=== PATIENT | female | born 1990 | race Caucasian/White ===

== ENCOUNTER → 2018-10-03 16:53 | Outpatient (CLI) | payer OTHER, SELFPAY | PROVIDERS: Visit Provider Obstetrics & Gynecology | DX: R31.9 Hematuria, unspecified (principal) | CPT/HCPCS: 87086 ==

== ENCOUNTER → 2018-10-28 11:41 | Outpatient (CLI) | payer OTHER, SELFPAY ==
[2018-10-29 13:59] LABS: HSV 2 IGG AB 7.73 index (< 0.90); HSV1IGG < 0.90 index (< 0.90)
== END ==
PROVIDERS: Visit Provider Obstetrics & Gynecology
DX: Z34.03 Encounter for supervision of normal first pregnancy, third trimester (principal)
CPT/HCPCS: 36415; 86695; 86696

== ENCOUNTER → 2018-11-09 10:04 | Outpatient (CLI) | payer OTHER, SELFPAY ==
[2018-11-10 13:06] LABS: Strep Grp B PCR NEG for Grp B Strep
== END ==
PROVIDERS: Visit Provider Obstetrics & Gynecology
DX: Z34.03 Encounter for supervision of normal first pregnancy, third trimester (principal)
CPT/HCPCS: 87653

== ENCOUNTER 2018-11-16 09:10 | Outpatient (CLI) | payer OTHER, SELFPAY | END 2018-11-16 10:15 | disposition home or self-care (01) | LOC: LABOR 09:37 → OB 11-17 11:06 | PROVIDERS: Visit Provider Obstetrics & Gynecology | DX: Z34.83 Encounter for supervision of other normal pregnancy, third trimester (principal); Z3A.36 36 weeks gestation of pregnancy | CPT/HCPCS: 59025; G0378; G0379 ==

== ENCOUNTER 2018-11-23 16:10 | Outpatient (CLI) | payer OTHER, SELFPAY | END 2018-11-23 16:45 | disposition home or self-care (01) | LOC: OB 11-30 08:37 | PROVIDERS: Visit Provider Obstetrics & Gynecology | DX: Z34.03 Encounter for supervision of normal first pregnancy, third trimester (principal); Z3A.37 37 weeks gestation of pregnancy | CPT/HCPCS: 59025; G0378; G0379 ==

== ENCOUNTER 2018-11-26 00:16 | Outpatient (CLI) | payer OTHER, SELFPAY | END 2018-11-26 01:30 | disposition home or self-care (01) | LOC: OB 11-30 08:40 | DX: Z34.03 Encounter for supervision of normal first pregnancy, third trimester (principal); Z3A.38 38 weeks gestation of pregnancy | CPT/HCPCS: 59025; 59050; G0378; G0379 ==

== ENCOUNTER 2018-11-29 12:23 | Outpatient (CLI) | payer OTHER, SELFPAY | END 2018-11-29 13:30 | disposition home or self-care (01) | LOC: OB 11-30 14:46 | PROVIDERS: Visit Provider Family Medicine | DX: Z34.03 Encounter for supervision of normal first pregnancy, third trimester (principal); Z3A.38 38 weeks gestation of pregnancy | CPT/HCPCS: 59025; G0378; G0379 ==

== ENCOUNTER 2018-11-30 00:05 | Inpatient (IN) | payer OTHER, SELFPAY ==
[2018-11-30 01:33] LABS: Add Manual Diff / Slide Review NO; Basophils Percent Auto 0.6 % (0-2); Eosinophils Percent Auto 1.3 % (2-4); Hematocrit 33.5 % (36-46); Hemoglobin 11.2 g/dL (12.0-16.0); Lymphocytes Percent Auto 15.6 % (25-40); Mean Corpuscular HGB Conc 33.5 % (30-36); Mean Corpuscular Hemoglobin 29.9 PG (26-34); Mean Corpuscular Volume 89.2 fL (80-100); Monocytes Percent Auto 7.8 % (3-14); Neutrophils Absolute Auto 9600 /uL (1500-7000); Neutrophils Percent Auto 74.7 % (50-75); Platelet Count 204 X10^3/uL (150-400); Red Blood Cell Count 3.75 X10^6/uL (4.0-5.2); Red Cell Distribution Width 14.2 % (11.6-14.8); White Blood Cell Count 12.9 X10^3/uL (4.5-11.0)
[2018-11-30] MEDS: LACTATED RINGERS 1,000 ML 100 ML IV ×3 (03:10→13:13)
[2018-11-30 06:04] VITALS: BP 141/81
[2018-11-30] MEDS: OXYTOCIN PREMIX 30 UNIT/500 ML PLAST..BAG IV (07:45)
--- NOTE | 2018-11-30 17:43 | PM.OBHP.1 ---
OB HPI Date/Time Date of admission: 11/30/18 Date Patient Seen: 11/30/18 Time Patient Seen: 07:45 History of Present Condition Chief complaint: evaluation of labor : 1 Para: 0 Estimated Date of Delivery: 12/08/18 Estimated Gestational Age (weeks): 38+6 Narrative: Marilyn Stone is a 28 year old female 1 para 0 who presented with spontaneous rupture of membranes last evening complicated only by aged placenta History of Present care: good care, initiated at week # (9) and number of visits (12) Dating criteria: LMP confirmed by 1st trimester US Ultrasounds: normal 1st trimester US and normal mid trimester US Obstetrical complications: other (Aged placenta) Medical complications: none Preadmission Labs Blood type: A (+) positive -: Antibody screen: negative, GBS status: negative, HBsAG: negative, HIV: negative, HSV 1: negative, HSV 2: positive and RPR/VDLR: negative -: Chlamydia screen: not detected and Gonorrhea screen: not detected -: Rubella: immune and Varicella: not immune HCT: 33.7 HCAB: negative Urine: Negative 1 hr GTT: 134 Evaluation Evaluation Baseline heart rate: 140 Variability: Moderate (11-25) monitor accelerations: Present monitor decelerations: Absent Contraction Frequency (minutes): 3 Uterine Contraction Intensity: Strong/Firm Category of Tracing: I Cervical dilation (cm): 4 Cervical effacement (%): 10 station: 0 Laboratory results: Laboratory Tests 11/30/18 11/30/18 01:00 01:00 WBC 12.9 H RBC 3.75 L Hgb 11.2 L Hct 33.5 L MCV 89.2 MCH 29.9 MCHC 33.5 RDW 14.2 Plt Count 204 Neut % (Auto) 74.7 Lymph % (Auto) 15.6 L [place] % (Auto) 7.8 Eos % (Auto) 1.3 L Baso % (Auto) 0.6 Neut # (Auto) 9600 H Blood Type A Positive Antibody Screen Negative PFSH Social History Smoking Status: Never smoker Meds Home Medications Medication Instructions Recorded Confirmed Type valacyclovir 500 mg tablet 500 mg PO DAILY #30 tab 11/09/18 11/30/18 Rx breast pump #1 each 11/16/18 11/30/18 Rx Allergies Allergy/AdvReac Type Severity Reaction Status Date / Time No Known Drug Allergies Allergy Verified 11/30/18 06:03 Exam Vital Signs (past 8 hours): Generally: A well-developed, well-nourished white female, no acute distress Lungs: Clear to auscultation bilaterally Cardiovascular: Regular rate and rhythm Fundal height: 38 cm Estimated weight 7 lb Extremities: Negative Homans, no edema Objective Labs Result Diagrams: 11/30/18 01:00 Labs: Laboratory Results - last 24 hr 11/30/18 11/30/18 01:00 01:00 WBC 12.9 H RBC 3.75 L Hgb 11.2 L Hct 33.5 L MCV 89.2 MCH 29.9 MCHC 33.5 RDW 14.2 Plt Count 204 Neut % (Auto) 74.7 Lymph % (Auto) 15.6 L [place] % (Auto) 7.8 Eos % (Auto) 1.3 L Baso % (Auto) 0.6 Neut # (Auto) 9600 H Blood Type A Positive Antibody Screen Negative Assessment and Plan (1) 38 weeks gestation of : Current visit: Yes Status: Acute (2) Spontaneous rupture of membranes: Current visit: Yes Status: Acute (3) Active labor: Current visit: Yes Status: Acute Plan: Plan: Assessment: 28-year-old 1 para 0 status post spontaneous rupture of membranes at 11:30 p.m. last evening. No signs and symptoms of chorioamnionitis Aged placenta Status post epidural placement Plan: Pitocin augmentation Expected management to spontaneous vaginal delivery
--- NOTE | 2018-11-30 17:51 | PM.OBPRVD ---
Events: Labor Augmentation and Placental Insufficiency (aged placenta) Delivery date: 11/30/18 Intrapartal events: None Induction method: none Delivery augmentation: pitocin Delivery monitor: external FHT and external uterine Route of delivery: Episiotomy description: None Laceration description: Superficial (bilateral labia minora) Delivery repair: vicryl and chromic Estimated blood loss (mL): 150 Anesthesia type: Epidural Complications: None Narrative: Patient presented last evening with spontaneous rupture of membranes at 11:30 p.m.. She received an epidural for pain management. Contractions spaced out. She received Pitocin augmentation this morning at 2 elsy international units per minute. She progressed to complete dilation at 2:10 p.m.. She began pushing at 2:42 p.m.. Delivery of a live male infant at 4:19 p.m. over an intact perineum. The cord was double clamped and cut. Cord bloods were obtained. The placenta delivered intact with a 3 vessel cord at 4:23 p.m.. Bilateral labia minora lacerations were repaired with 2 0 chromic. Apgars 8 at 1 min and 9 at 5 min. Estimated blood loss 150 cc. Weight 7 lb 2 oz. Epidural analgesia. . Mom and infant stable to recovery. Plan for aftercare: To routine care
--- NOTE | 2018-11-30 17:54 | P.PCNOB_ITS ---
Events: Labor Augmentation and Placental Insufficiency (aged placenta) Delivery date: 11/30/18 Intrapartal events: None Induction method: none Delivery augmentation: pitocin Delivery monitor: external FHT and external uterine Route of delivery: Episiotomy description: None Laceration description: Superficial (bilateral labia minora) Delivery repair: vicryl and chromic Estimated blood loss (mL): 150 Anesthesia type: Epidural Complications: None Narrative: Patient presented last evening with spontaneous rupture of membranes at 11:30 p.m.. She received an epidural for pain management. Contractions spaced out. She received Pitocin augmentation this morning at 2 elsy international units per minute. She progressed to complete dilation at 2:10 p.m.. She began pushing at 2:42 p.m.. Delivery of a live male infant at 4:19 p.m. over an intact perineum. The cord was double clamped and cut. Cord bloods were obtained. The placenta delivered intact with a 3 vessel cord at 4: 23 p.m.. Bilateral labia minora lacerations were repaired with 2 0 chromic. Apgars 8 at 1 min and 9 at 5 min. Estimated blood loss 150 cc. Weight 7 lb 2 oz. Epidural analgesia. . Mom and stable to recovery. Plan for aftercare: To routine care
[2018-11-30] MEDS: IBUPROFEN 600 MG TABLET PO (18:34)
[2018-11-30] MEDS: DERMOPLAST SPRAY 20% 60 ML 1 SPRAY TOP (18:35)
[2018-11-30] MEDS: METHYLERGONOVINE 0.2 MG/ML VIAL IM (20:10)
[2018-11-30] MEDS: OXYTOCIN 10 UNIT/ML VIAL IM (21:30)
[2018-11-30] MEDS: CARBOPROST 250 MCG/ML AMPUL IM (21:30)
[2018-11-30] MEDS: OXYCODONE/ACETAMINOPHEN 5/325 TABLET 1 TAB PO (22:17)
[2018-12-01] MEDS: IBUPROFEN 600 MG TABLET PO ×3 (00:48→09:42)
[2018-12-01] MEDS: LANOLIN OINT 7 GM 1 APPLIC TOP (03:15)
[2018-12-01] MEDS: METHYLERGONOVINE 0.2 MG TABLET PO ×3 (03:15→13:45)
[2018-12-01] MEDS: OXYCODONE/ACETAMINOPHEN 5/325 TABLET 1 TAB PO (03:59)
[2018-12-01 07:03] LABS: Hematocrit 32.9 % (36-46); Hemoglobin 11.1 g/dL (12.0-16.0)
[2018-12-01] MEDS: DOCUSATE 250 MG CAPSULE PO (09:42)
[2018-12-01] MEDS: PRENATAL VIT,CALC/IRON/FOLIC 1 TABLET 1 TAB PO (09:43)
[2018-12-01 14:44] VITALS: BP 114/68; PULSE 81; RESP 16; TEMP 36.7
== END 2018-12-01 18:10 | disposition home or self-care (01) | DRG 807 ==
PROVIDERS: Admitting Provider Obstetrics & Gynecology; Visit Provider Obstetrics & Gynecology
DX: O43.893 Other placental disorders, third trimester (principal); Z37.0 Single live birth; Z3A.38 38 weeks gestation of pregnancy; O70.0 First degree perineal laceration during delivery
CPT/HCPCS: 01967; 59050; 59410; 85014; 85018; 85025; 86850; 86900; 86901; G0379; J2210; J2590